=== PATIENT | female | born 1980 | race Caucasian/White ===

== ENCOUNTER 2025-01-01 14:16 | Emergency (ER) | payer OTHER ==
[~2025-01-01] VITALS: Ht 172.7 cm; Wt 81.6 kg
[2025-01-01] MEDS ORDERED: ONDANSETRON HCL/PF 4 MG/2 ML VIAL ONE (14:40)
[2025-01-01] MEDS ORDERED: METOCLOPRAMIDE HCL 10 MG/2 ML VIAL ONE (14:43)
[2025-01-01] MEDS ORDERED: diphenhydrAMINE HCL 50 MG/ML VIAL ONE (14:43)
[2025-01-01] MEDS: IV NS 0.9% 1,000 ML BAG IV ONE (15:00)
[2025-01-01] MEDS: ONDANSETRON HCL/PF 4 MG/2 ML VIAL IVP ONE (15:00)
[2025-01-01] MEDS: diphenhydrAMINE HCL 50 MG/ML VIAL IV ONE (15:02)
[2025-01-01] MEDS: METOCLOPRAMIDE HCL 10 MG/2 ML VIAL IV ONE (15:03)
[2025-01-01 15:07] LABS: BASOPHILS # (AUTO) 0.1 K/uL (0.0-0.2); BASOPHILS % (AUTO) 0.3 % (0.0-2.0); EOSINOPHILS % (AUTO) 0.2 % (0.0-6.0); HEMATOCRIT 47 % (33-45); HEMOGLOBIN 15.8 g/dL (11.5-14.8); LYMPHOCYTES # (AUTO) 0.8 K/uL (0.8-4.8); LYMPHOCYTES % (AUTO) 4.3 % (20.0-44.0); MEAN CORPUSCULAR HEMOGLOBIN 30 PG (26.0-33.0); MEAN CORPUSCULAR HGB CONC 34 g/dl (31.0-36.0); MEAN CORPUSCULAR VOLUME 89 fL (82-100); MONOCYTES # (AUTO) 1.3 K/uL (0.1-1.30); NEUTROPHILS # (AUTO) 15.8 K/uL (1.8-8.9); NEUTROPHILS % (AUTO) 88.2 % (43.0-81.0); PLATELET COUNT (AUTO) 216 K/uL (150-450); RED BLOOD CELL COUNT(AUTO) 5.33 MIL/uL (4.0-5.2); RED CELL DISTRIBUTION WIDTH 12.3 % (11.5-15.0); WHITE BLOOD COUNT (AUTO) 17.9 K/uL (4.3-11.0)
[2025-01-01 15:18] LABS: CALCIUM, SERUM 9.5 mg/dL (8.5-10.1); POTASSIUM 4.3 mmol/L (3.5-5.1)
[2025-01-01] MEDS: ACETAMINOPHEN ES 500 MG TABLET PO ONE (15:20)
[2025-01-01] MEDS ORDERED: ACETAMINOPHEN ES 500 MG TABLET ONE (15:47)
[2025-01-01] MEDS ORDERED: KETOROLAC TROMETHAMINE 15 MG/ML VIAL ONE ×2 (15:53→15:57)
[2025-01-01] MEDS: IV NS 0.9% 500 ML BAG IV ONE (16:00)
[2025-01-01] MEDS: KETOROLAC TROMETHAMINE 15 MG/ML VIAL IV ONE (16:02)
[2025-01-01] MEDS ORDERED: PROCHLORPERAZINE EDISYLATE 10 MG/2 ML VIAL ONE (17:03)
[2025-01-01] MEDS ORDERED: IOHEXOL-350 100 ML VIAL IV ONE (17:07)
[2025-01-01] MEDS ORDERED: IV NS 0.9% 250 ML IV ONE (17:08)
[2025-01-01] MEDS ORDERED: SUMATRIPTAN SUCCINATE 6 MG/0.5 ML VIAL SQ ONE (17:14)
[2025-01-01] MEDS: PROCHLORPERAZINE EDISYLATE 10 MG/2 ML VIAL IVP ONE (17:31)
[2025-01-01] MEDS: SUMATRIPTAN SUCCINATE 6 MG/0.5 ML VIAL SQ ONE (17:33)
[2025-01-01 18:11] VITALS: BP 126/80; TEMP 98.3; O2SAT 98
== END 2025-01-01 18:12 | disposition home or self-care (01) ==
LOC: ER 14:30
DX: R51.9 Headache, unspecified (principal); R42 Dizziness and giddiness; R11.2 Nausea with vomiting, unspecified; R10.2 Pelvic and perineal pain
CPT/HCPCS: 99285; 96374; 96375; 70496; 96361; 85025; 80048; 36415; 84702; 96372; J1885; J0780; J1200; J3030; J2765; J2405; J7030; J7050; J7040; Q9967